=== PATIENT | female | born 1950 | race Caucasian/White ===

== ENCOUNTER → 2018-09-11 08:21 | Outpatient (CLI) | payer SELFPAY ==
[2018-09-11 08:56] VITALS: BP 126/46; PULSE 70; RESP 16; O2SAT 97; BMI 31.1
== END ==
PROVIDERS: Family Provider Family Medicine Hospice and Palliative Medicine; PCP Family Medicine Hospice and Palliative Medicine; Referring Provider Family Medicine Hospice and Palliative Medicine; Visit Provider Family Medicine Hospice and Palliative Medicine
DX: Z45.2 Encounter for adjustment and management of vascular access device (principal)
CPT/HCPCS: 36569